=== PATIENT | female | born 1980 | race Caucasian/White ===

== ENCOUNTER 2017-02-01 11:45 | Day surgery (SDC) | payer OTHER ==
[~2017-02-01] VITALS: Ht 154.9 cm; Wt 75.2 kg
[2017-02-01] VITALS (8 sets, daily range): BP systolic 111–134; BP diastolic 60–90; PULSE 88–98; RESP 16–19; Ht 154.9 cm; Wt 75.2 kg
--- NOTE | 2017-02-01 06:34 | PREOPHP ---
DATE OF ADMISSION: 02/01/2017 HISTORY OF PRESENT ILLNESS: This is a 36-year-old lady, 2, para 2. Her last normal menstru al period was a few days prior to admission. She was admitted for D and C, hysteroscopy, and remova l of the part of the IUD. This patient had her IUD removed and 1 portion of the IUD was retained. Ultrasound showed a possible retained portion of the IUD. The patient wanted to have it removed as she said she wanted to get . The procedures were explained to the patient, and she understo od everything totally. The risks, benefits and alternatives were discussed with her as well. PAST PERSONAL HISTORY: No history of TB, asthma. ALLERGIES: NO ALLERGIES. SOCIAL HISTORY: The patient does not smoke. She does not drink. MEDICATIONS: She does not take any drugs. GYNECOLOGIC HISTORY: She had menarche at the age of 14, every 28 days interval, 3 to 4 days duratio n, and moderate in amount. FAMILY HISTORY: Noncontributory. She is 2, para 2 with 2 normal deliveries. REVIEW OF SYSTEMS: CARDIOVASCULAR: No chest pains. RESPIRATORY: No cough. GASTROINTESTINAL: No diarrhea, no vomiting. GENITOURINARY: No dysuria. PHYSICAL EXAMINATION: GENERAL: Reveals a conscious coherent lady in no acute distress. VITAL SIGNS: Her blood pressure 120/70, pulse rate 80 per minute, respirations 16 per minute. BREASTS: Within normal limits. HEART: Within normal limits. LUNGS: Within normal limits. ABDOMEN: Soft and moderately obese. PELVIC: Revealed the cervix to be firm, uterus of normal size, and adnexa were negative for masses. RECTAL: Confirmed the pelvic findings. EXTREMITIES: No pedal edema. ADMITTING DIAGNOSIS: Retained part of IUD. PLAN: The patient was planned to have a hysteroscopy, D and C, and removal of the part of IUD. The procedures were explained to the patient, and she understood everything totally. Risks, benefits, and alternatives were discussed with her as well. Dictated By: STEPHANIE KULKARNI/BHAVYA Conf#: [id number] DID#: [id number]
[2017-02-01] MEDS ORDERED: MEPERIDINE 100 MG INJ ONE (15:43)
[2017-02-01] MEDS ORDERED: PROPOFOL 20 ML ONE (15:43)
[2017-02-01] MEDS ORDERED: LIDOCAINE 2% (SDV) 5 ML INJ ONE (15:43)
[2017-02-01] MEDS ORDERED: METOCLOPRAMIDE 10 MG INJ ONE (15:44)
[2017-02-01] MEDS ORDERED: ONDANSETRON 4 MG INJ ONE (15:44)
[2017-02-01] MEDS ORDERED: METOCLOPRAMIDE 10 MG INJ IV PRN (16:00)
[2017-02-01] MEDS ORDERED: FENTAnyl 50 MCG/ML VIAL IV PRN ×2 (16:00)
[2017-02-01] MEDS ORDERED: DIPHENHYDRAMINE 50 MG INJ IV PRN (16:00)
[2017-02-01] MEDS ORDERED: ONDANSETRON 4 MG INJ IV PRN (16:00)
[2017-02-01] MEDS ORDERED: MEPERIDINE 25 MG INJ IV PRN (16:00)
[2017-02-01] MEDS ORDERED: MIDAZOLAM 1 MG/ML 2 ML INJ IV PRN (16:00)
[2017-02-01] MEDS ORDERED: morphine (1 MG/ML) 10ML SYRINGE IV PRN ×2 (16:00)
--- NOTE | 2017-02-01 16:48 | OPR ---
DATE OF OPERATION: 02/01/2017 PREOPERATIVE DIAGNOSIS: Retained part of intrauterine device ParaGard. POSTOPERATIVE DIAGNOSIS: Retained part of intrauterine device ParaGard. SURGEON: Yuliana Vidal MD SET DESIGNER: Lavonne tee. ANESTHESIA: General. OPERATION PERFORMED: Hysteroscopy, dilatation and curettage. OPERATIVE TECHNIQUE: Under general anesthesia, the patient was prepped and draped in the usual [facility] ion for vaginal surgery. Pelvic exam under anesthesia revealed the cervix to be firm, uterus of nor mal size and adnexa were negative for masses. Then, the heavy weight vaginal retractor was put in p lace and the anterior lip of the cervix was grasped with a single tooth tenaculum. Endocervical dil atation up to Hegar 7 was proceeded. Then, the uterus was sounded to about 2.5 inches. Then the hy steroscope was inserted inside the uterine cavity and connected with a light source and with normal saline. There was no IUD that was seen. There was no piece of IUD that was noted with hysteroscope . Then curettage was performed. After the curettage was performed, mostly on the anterior lower ut erine segment as on the ultrasound showed a possible IUD on the lower uterine segment. Multiple cur ettage was done, but no IUD could be pulled out. At the same time, Allis clamp was put in on the lo wer uterine segment, then no IUD could be pulled out. Also, was put on the lower uterine segm ent and to pull out the piece of IUD but unsuccessful. Many attempts were done to remove the piece of IUD, but it could not be done. These procedures were explained to the patient prior to surgery a nd that if it could not be done, it was explained to the patient that either we have to do laparotom y on her, but the patient declined to have laparotomy, so the procedure was terminated without an IU D pulled out. The patient tolerated the procedure well. Estimated blood loss was minimal. Vital s igns were stable during and after the procedure. As mentioned, patient was well informed that there is a possibility that the IUD could not be taken out the patient is well aware of it. Dictated By: YULIANA KULKARNI/BHAVYA Conf#: [id number] [facility]#: [id number]
== END 2017-02-01 17:30 | disposition home or self-care (01) ==
LOC: SDS 11:45
PROVIDERS: ATTEND Obstetrics & Gynecology
DX: Z30.432 Encounter for removal of intrauterine contraceptive device (principal)
CPT/HCPCS: 58562; 84702; 84703; 86850; 86900; 86901; J2175; J2405; J2765; Z7512; Z7610